=== PATIENT | female | born 1975 | race Caucasian/White ===

== ENCOUNTER 2021-06-16 08:42 | Outpatient (CLI) | payer OTHER, SELFPAY ==
--- NOTE | 2021-06-16 08:54 | MM_ITS ---
WS: [id number] BILATERAL DIGITAL SCREENING MAMMOGRAPHY WITH CAD CLINICAL INFORMATION: SCREENING HISTORY: Screening mammogram. No current complaints. COMPARISON: April 01, 2020 March 25, 2020 TECHNIQUE: Bilateral CC and MLO views. FINDINGS: Scattered fibroglandular densities bilaterally. No suspicious focal mass, asymmetry, calcifications, or architectural distortion. No evidence of malignancy. Biopsy marker right breast. Punctate calcific ations right breast. MM/[place] [id number] IMPRESSION: BI-RADS: 2-Benign FOLLOW UP: 1 Year Follow-up Recommend return to annual screening mammography.
== END 2021-06-16 08:43 | disposition home or self-care (01) ==
LOC: RADSHAW 08:53
PROVIDERS: PCP Family Medicine; Visit Provider Family Medicine
DX: Z12.31 Encounter for screening mammogram for malignant neoplasm of breast (principal)
CPT/HCPCS: 77067

== ENCOUNTER 2021-09-22 23:45 | Emergency (ER) | payer OTHER, SELFPAY ==
[2021-09-22 23:52] VITALS: BP 150/96; PULSE 118; RESP 20; TEMP 36.1; O2SAT 97; BMI 39.9
[2021-09-23 00:42] VITALS: BP 132/96; PULSE 115; RESP 16; O2SAT 95
--- NOTE | 2021-09-23 00:43 | ED_ITS ---
HPI - Abdominal Pain General: Chief Complaint: Abdominal Pain Stated Complaint: Left ABD Pain\Blood in Urine Time Seen by Provider: 09/22/21 23:49 Source: patient Mode of arrival: ambulatory Limitations: no limitations History of Present Illness: HPI narrative: 46-year-old female states she been having some left sided abdominal pain over the last 2 days it worsened today states a full feeling in her left upper quadrant that radiates to her back states it feels almost like a gas pains rates her pain a 4 out of 10 currently denies any worsening proving factors she was seen by her PCP and started on ciprofloxacin for possible UTI she denies any dysuria vomiting or diarrhea. Associated Symptoms: Denies chills, dysuria and fever(s) Related Data: Date of Last Menstrual Period: 09/17/21 Review of Systems Const: Denies: fever(s), chills, body aches or change in appetite Eyes: Denies: blurry vision or eye discomfort ENMT: Denies: throat pain or dental pain Card: Denies: chest pain Resp: Denies: dyspnea GI: Reports: abdominal pain : Denies: dysuria Musc: Denies: neck pain or back pain Skin/Breast: Denies: rash Neuro: Denies: headache(s) Psych: Denies: depression Rolf/Lymph: Denies: easy bruising All/Imm: Denies: urticaria PFSH ED PFSH: Family History Other CAD (coronary artery disease) Cancer Chronic kidney disease (CKD) Diabetes Hypertension Lung disease Stroke Denies family history of Dementia Psychiatric illness Social History Smoking and tobacco status: never smoked Second hand smoke exposure: No Alcohol intake: never Lives independently: Yes Household members: spouse and children Marital status: Female Reproductive History: Date of last menstrual period: 09/17/21 Physical Exam Const: COMMON NORMALS: no acute distress, patient oriented x3 and healthy appearing HENMT: COMMON NORMALS: normocephalic and atraumatic HEAD & SCALP: normocephalic and atraumatic Eye: COMMON NORMALS: Equal, round and reactive pupils present and EOMs intact bilaterally PUPIL: Yes Equal, round and reactive pupils present Neck/C-Spine: COMMON NORMALS: full ROM and supple Chest: COMMONS NORMALS: normal inspection of the chest and normal palpation of entire chest wall Resp: COMMON NORMALS: normal respiratory effort, No retractions, No use of accessory muscles and clear to auscultation bilaterally AUSCULTATION: clear to auscultation bilaterally Cardio: COMMON NORMALS: regular rate, regular rhythm and No murmurs present (Cardio) RATE: regular rate RHYTHM: regular rhythm GI: COMMON NORMALS: Normal to inspection, nondistended, normoactive bowel sounds present, Soft to palpation and no masses PALPATION: Yes Soft to palpation and Yes Tenderness to palpation present (GI) Details: LUQ Extremity: COMMON NORMALS: normal to inspection and full ROM Neuro: COMMON NORMALS: patient oriented x3, moves all extremities and no focal motor deficits Psych: COMMON NORMALS: mental status grossly normal, Normal thought process present and cooperative THOUGHT PROCESS: Normal thought process present Skin: COMMON NORMALS: no rashes or lesions noted and no wounds GENERAL SKIN EXAM: no rashes or lesions noted Course Vital Signs: Vital signs: Vital Signs Temperature 96.9 F L 09/22/21 23:52 Pulse Rate 107 H 09/23/21 02:13 Respiratory Rate 16 09/23/21 00:42 Blood Pressure 129/81 09/23/21 02:13 Pulse Oximetry 96 09/23/21 02:13 MDM - Abdominal Pain MDM Narrative: Medical decision making narrative: Patient presents here with abdominal pain CT scan shows colitis her pain is much improved here exam at discharge is benign we will start her on Flagyl she is already taking Cipro at home for UTI she is to continue that prescription as well she is to follow-up with PCP and return if worsening. Lab Data: Labs: Lab Results 09/23/21 09/23/21 00:38 00:39 Sodium 138 mmol/L mmol/L (136-145) Potassium 3.9 mmol/L mmol/L (3.5-5.1) Chloride 103 mmol/L mmol/L (98-107) Carbon Dioxide 21 mmol/L L mmol/ L (22-29) Anion Gap 17.9 (5-19) BUN 14 mg/dL mg/dL (6-20) Creatinine 0.7 mg/dL mg/dL (0.5-0.9) GFR Calculation 90.1 mL/min mL/mi n (90-130) Glucose 107 mg/dL mg/dL (65-115) Calculated Osmolal ity 287 mOsm/kg mOsm/ kg (285-295) Calcium 8.4 mg/dL L mg/dL (8.5-10.5) Total Bilirubin 0.3 mg/dL mg/dL (0.15-1.2) AST 50 U/L H U/L (0-32) ALT 68 U/L H U/L (0-33) Alkaline Phosphata se 161 IU/L H IU/L (35-105) Total Protein 7.5 g/dL g/dL (6.6-8.7) Albumin 3.9 g/dL g/dL (3.5-5.2) Globulin 3.6 g/dL g/dL (1.3-4.6) Lipase 40 U/L U/L (13-60) Urine Color Yellow (Yellow) Urine Appearance Clear (CLEAR) Urine pH 5 (5-7) Ur Specific Gravit y 1.025 (1.005-1.030) Urine Protein Neg (Negative) Urine Glucose (UA) Norm (Normal) Urine Ketones Negative (Negative) Urine Blood Neg (Negative) Urine Nitrate Negative (Negative) Urine Bilirubin Neg (Negative) Urine Urobilinogen Neg mg/dL mg/dL (Negative) Ur Leukocyte Zully ase Negative (Negative) Imaging Data ^: CT Abd/Pel: Attestation: I personally reviewed and interpreted this imaging study as follows: Radiologist's impression: [address] [address] [address] Scan Report Signed Patient: Lamar Jin Unit #: [id number] : 1975 Age/Sex: 46 / F ADM Date: 09/22/21 Loc: ER Room/Bed: Attending Dr: Ordering Provider/Ordering MD: Gordy Joshi MD Date of Service: 09/23/21 Procedure(s): CT abdomen pelvis w con* [id number] Accession Number(s): [id number] Report Number: [id number] PROCEDURE INFORMATION: Exam: CT Abdomen And Pelvis With Contrast Exam date and time: 09/23/2021 12:42 AM Age: 46 years old Clinical indication: Abdominal pain; Localized; Prior surgery; Surgery type: Gb. Csection. Lap band/removal. . ; Patient HX: C/O left sided abd pain. TECHNIQUE: Imaging protocol: Computed tomography of the abdomen and pelvis with contrast. Radiation optimization: All CT scans at this facility use at least one of these dose optimization techniques: automated exposure control; mA and/or kV adjustment per patient size (includes targeted exams where dose is matched to clinical indication); or iterative reconstruction. Contrast material: OMNI 300; Contrast volume: 95 ml; Contrast route: INTRAVENOUS (IV); COMPARISON: [place] [id number] 03/29/2020 12:30 PM RADIATION DOSE METRICS: Total DLP (mGy-cm): 1836.12 FINDINGS: Lungs: Calcified granulomas are seen the right lower hemithorax. Liver: Normal. No mass. Gallbladder and bile ducts: Status post cholecystectomy. Pancreas: Normal. No ductal dilation. Spleen: Normal. No splenomegaly. Adrenal glands: Normal. No mass. Kidneys and ureters: Normal. No hydronephrosis. Stomach and bowel: There is focal thickening of the colonic bowel wall and there is surrounding haziness seen in the mesentery of the distal transverse colon, findings suggesting colitis. Appendix: No evidence of appendicitis. Intraperitoneal space: Unremarkable. No free air. No significant fluid collection. Vasculature: Unremarkable. No abdominal aortic aneurysm. Lymph nodes: Unremarkable. No enlarged lymph nodes. Urinary bladder: Unremarkable as visualized. Reproductive: Unremarkable as visualized. Bones/joints: Unremarkable. No acute fracture. Soft tissues: Unremarkable. CT/CT abdomen pelvis w con* [id number] IMPRESSION: Bowel wall thickening and surrounding haziness within the colonic mesentery of the distal transverse colon suggesting colitis. Dictated By: Nghia Jaramillo MD Signed By: Nghia Jaramillo MD Signed Date/Time: 09/23/21 0225 Discharge Plan Discharge Patient Disposition: Home Clinical Impression: Colitis Condition: Stable Prescriptions: New hydrocodone-acetaminophen 5-325 mg tablet 1 tab PO Q6H PRN (Reason: pain) Qty: 14 RF: 0 ondansetron 4 mg tablet,disintegrating 4 mg PO Q6H PRN (Reason: nausea and vomiting) Qty: 14 RF: 0 Flagyl 500 mg tablet 500 mg PO Q12H 10 Days Qty: 20 RF: 0 No Action levothyroxine 175 mcg capsule 175 mcg PO DAILY RF: 0 spironolactone 25 mg tablet 25 mg PO DAILY RF: 0 duloxetine [Cymbalta] 20 mg capsule,delayed release(DR/EC) 20 mg PO BID RF: 0 dextroamphetamine-amphetamine [Adderall] 5 mg tablet 5 mg PO DAILY RF: 0 losartan 50 mg tablet 50 mg PO DAILY RF: 0 omeprazole 40 mg capsule,delayed release(DR/EC) 40 mg PO DAILY RF: 0 multivitamin Tablet 1 tab PO DAILY RF: 0 magnesium 200 mg tablet 200 mg PO DAILY RF: 0 Discharge Orders: Discharge ED (Routine); Ordered 09/23/21 Ordered By: Gordy Joshi Referrals: Javier Jose MD [Primary Care Provider] - 1-3 days Discharge Diet: Advance as tolerated Discharge Activity: Resume usual activity Patient Instructions: Colitis (ED), Opioid Safety Coding Level of Care Code ED Inspector [employer] for Maday Fwd Exam Comprehensive
[2021-09-23] MEDS: morphine 4 mg/mL SDV 1 mL IVP (00:51)
[2021-09-23] MEDS: ondansetron 2 mg/ML SDV 2 mL 4 MG IVP (00:51)
[2021-09-23] MEDS: sodium chloride 0.9% 1,000 ML 999 ML IV (00:52)
[2021-09-23 00:56] LABS: Basophils # 0.1 10^3/uL (0.0-0.1); Basophils % 0.8 %; Eosinophils # 0.4 10^3/uL (0.0-0.8); Eosinophils % 3.3 %; Hematocrit 42.4 % (37.0-47.0); Hemoglobin 13.6 g/dL (11.5-15.3); Lymphocytes # 3.1 10^3/uL (0.8-4.8); Lymphocytes % 28.5 %; Mean Corpuscular HGB Conc 32.1 g/dL (30.0-36.0); Mean Corpuscular Hemoglobin 30.2 pg (28.0-34.0); Mean Corpuscular Volume 94.2 fl (81-99); Mean Platelet Volume 11.1 fL (7.4-10.4); Monocytes # 0.9 10^3/uL (0.2-0.9); Monocytes % 8.8 %; Neutrophils # 6.26 10^3/uL (1.8-7.7); Neutrophils % 58.2 %; Nucleated Red Blood Cells % 0 %; Platelet Count 313 10^3/cmm (130-400); Red Cell Distribution Width 13.7 % (12.1-15.1); White Blood Count 10.7 10^3/uL (4.0-10.0)
[2021-09-23 01:03] LABS: Add Urine Microscopic? NO; Charge for UA Resulting for Rev
[2021-09-23] MEDS: iohexol 300 mg/mL 100 mL Btl IV (01:07)
[2021-09-23 01:32] LABS: Bilirubin Urine Neg (Negative); Blood Urine Neg (Negative); Glucose Urine UA Norm (Normal); Ketones Urine Negative (Negative); Leukocyte Esterase Urine Negative (Negative); Nitrate Urine Negative (Negative); Protein Urine Neg (Negative); Specific Gravity, Urine 1.025 (1.005-1.030); Urine Appearance Clear (CLEAR); Urine Color Yellow (Yellow); Urobilinogen Urine Neg (Negative); pH Urine 5 (5-7)
[2021-09-23 01:40] LABS: Alanine Aminotransferase 68 U/L (0-33); Albumin Level 3.9 g/dL (3.5-5.2); Alkaline Phosphatase 161 IU/L (35-105); Anion Gap 17.9 (5-19); Aspartate Amino Transferase 50 U/L (0-32); Blood Urea Nitrogen 14 mg/dL (6-20); Calcium 8.4 mg/dL (8.5-10.5); Carbon Dioxide 21 mmol/L (22-29); Chloride 103 mmol/L (98-107); Globulin 3.6 g/dL (1.3-4.6); Glomerular Filtration Rate 90.1 mL/min (90-130); Glucose 107 mg/dL (65-115); Lipase 40 U/L (13-60); Osmolality Calculated 287 mOsm/kg (285-295); Potassium 3.9 mmol/L (3.5-5.1); Sodium 138 mmol/L (136-145); Total Bilirubin 0.3 mg/dL (0.15-1.2); Total Protein 7.5 g/dL (6.6-8.7)
[2021-09-23 02:13] VITALS: BP 129/81; PULSE 107; O2SAT 96
[2021-09-23 03:24] VITALS: BP 123/99; PULSE 105; RESP 16; O2SAT 98
== END 2021-09-23 03:25 | disposition home or self-care (01) ==
PROVIDERS: Emergency Provider Emergency Medicine; PCP Family Medicine
DX: K52.9 Noninfective gastroenteritis and colitis, unspecified (principal)
CPT/HCPCS: 74177; 80053; 81003; 83690; 85025; 96361; 96374; 96375; 99284; J2270; J2405; J7030; Q9967

== ENCOUNTER 2022-06-28 13:37 | Outpatient (CLI) | payer OTHER, SELFPAY ==
--- NOTE | 2022-06-28 13:45 | MM_ITS ---
WS: [id number] BILATERAL 3D TOMOSYNTHESIS DIGITAL SCREENING MAMMOGRAPHY WITH CAD CLINICAL INFORMATION: SCREENING HISTORY: June 16, 2021 COMPARISON: None. TECHNIQUE: Bilateral CC and MLO views. FINDINGS: Scattered fibroglandular densities bilaterally. No suspicious focal mass, asymmetry, calcifications, or architectural distortion. No evidence of malignancy. Biopsy clip 6:00 RIGHT breast. A few incident al punctate calcifications. MM/[place] [id number] IMPRESSION: BI-RADS: 2-Benign FOLLOW UP: 1 Year Follow-up Recommend return to annual screening mammography.
== END 2022-06-28 13:38 | disposition home or self-care (01) ==
LOC: RAD 13:41
PROVIDERS: PCP Family Medicine; Visit Provider Family Medicine
DX: Z12.31 Encounter for screening mammogram for malignant neoplasm of breast (principal)
CPT/HCPCS: 77063; 77067

== ENCOUNTER 2023-01-15 12:07 | Outpatient (CLI) | payer OTHER, SELFPAY ==
--- NOTE | 2023-01-15 12:53 | XR_ITS ---
WS: [id number] XR shoulder RT min 2V* [id number] REASON FOR EXAM: ACUTE PAIN OF R SHOULDER FINDINGS: Acromioclavicular joint space relatively intact with mild subchondral sclerosis and small osteophytos is. Glenohumeral joint space is not well demonstrated but appears intact without significant narrowing. T here is mild subchondral sclerosis in the glenoid. Mild sclerosis in the biceps tuberosity. XR/XR shoulder RT min 2V* [id number] IMPRESSION: Mild changes of osteoarthritis in the glenohumeral and acromioclavicular joints . Mild rotator cuff tendon arthropathy.
== END 2023-01-15 12:08 | disposition home or self-care (01) ==
LOC: RAD 12:43
PROVIDERS: PCP Family Medicine; Visit Provider Family Medicine
DX: M19.011 Primary osteoarthritis, right shoulder (principal)
CPT/HCPCS: 73030

== ENCOUNTER 2023-04-23 13:18 | Outpatient (RCR) | payer OTHER, SELFPAY | END 2023-05-14 23:59 | disposition home or self-care (01) | LOC: SPT 13:18 | PROVIDERS: PCP Family Medicine; Visit Provider Family Medicine | DX: M25.511 Pain in right shoulder (principal) | CPT/HCPCS: 97110; 97161 ==